=== PATIENT | female | born 1945 | race Caucasian/White ===

== ENCOUNTER → 2019-05-01 | Outpatient (CLI) | payer OTHER ==
--- NOTE | 2019-05-01 14:14 | RAD ---
EXAM DESCRIPTION: Chest,2 Views CLINICAL HISTORY: COUGH COMPARISON: Previous study May 26, 2016 TECHNIQUE: PA/lateral FINDINGS: There is no acute appearing cardiac or pulmonary abnormality. Heart size is normal with normal pulmonary vascularity. No pleural effusion or pneumothorax. Lungs are clear with no consolidating infiltrate. Lateral view shows intact sternum and T-spine. IMPRESSION: No acute process is identified in the chest. Electronically signed by: Richar Lehman MD 05/01/2019 2:12 PM CDT
== END ==
LOC: LAB.O 12:07
PROVIDERS: ATTEND Nurse Practitioner
DX: R19.7 Diarrhea, unspecified (principal); R05 Cough

== ENCOUNTER → 2019-11-03 | Outpatient (CLI) | payer OTHER ==
--- NOTE | 2019-11-04 08:43 | RAD ---
EXAM DESCRIPTION: KUB CLINICAL HISTORY: 74 years Female, BLOOD IN URINE COMPARISON: None. FINDINGS: Nonobstructive bowel gas pattern. Two tiny calcifications project over the right sacral wing and expected location of the right ureter. The bones are unremarkable. IMPRESSION: Possible right ureteral calculus. If clinically suspicious, CT is suggested. Electronically signed by: Roberto Palma MD 11/04/2019 8:41 AM LEGAL RECORDS CLERK
== END ==
LOC: LAB.O 12:47
PROVIDERS: ATTEND Nurse Practitioner
DX: N28.9 Disorder of kidney and ureter, unspecified (principal)

== ENCOUNTER → 2019-11-10 | Outpatient (CLI) | payer OTHER ==
--- NOTE | 2019-11-11 08:13 | CT ---
EXAM DESCRIPTION: Abdoment/Pelvis w/o Contrast CLINICAL HISTORY: 74 years Female, ABN FINDINGS ON DIAGNOSTIC IMAGING OF ABDOMEN TECHNIQUE: This exam was performed according to our departmental dose-optimization program, which includes automated exposure control, adjustment of the mA and/or kV according to patient size and/or use of iterative reconstruction technique. COMPARISON: None at time of initial interpretation. FINDINGS: Focal right basilar airspace disease. Evaluation limited by lack of intravenous contrast. The contours of the liver, spleen, pancreas and adrenal glands are unremarkable. Cholecystectomy. Normal renal contours. No hydronephrosis. No urolithiasis. Right ovarian vein phlebolith. Unremarkable bladder. Submucosal fat deposition throughout the right and proximal transverse colon likely a sequela of chronic inflammation. No evidence of acute inflammation. No evidence of bowel obstruction. No findings to suggest appendicitis. No adenopathy. No focal fluid collection. No free air. Normal caliber abdominal aorta. Mild atherosclerotic disease. No acute or suspicious osseous abnormality. Scattered degenerative changes present. Large L3 vertebral body hemangioma. IMPRESSION: 1. No evidence of acute process in the abdomen or pelvis. No hydronephrosis or urolithiasis. 2. Right gonadal vein phlebolith which likely accounts for the calcification noted on the recent radiograph. Electronically signed by: Bart Barahona MD 11/11/2019 8:12 AM [employer] BENDER
== END ==
LOC: CT 12:12
PROVIDERS: ATTEND Nurse Practitioner
DX: R93.5 Abnormal findings on diagnostic imaging of other abdominal regions, including retroperitoneum (principal); I87.8 Other specified disorders of veins

== ENCOUNTER → 2020-06-18 | Outpatient (CLI) | payer OTHER | LOC: YCFC.O 12:33 | PROVIDERS: ATTEND Nurse Practitioner Family | DX: Z03.818 Encounter for observation for suspected exposure to other biological agents ruled out (principal) ==